=== PATIENT | male | born 1985 | race Caucasian/White ===

== ENCOUNTER 2019-04-09 07:59 | Day surgery (SDC) | payer OTHER ==
[~2019-04-09] VITALS: Ht 188 cm; Wt 100.8 kg
[2019-04-09] MEDS ORDERED: LACTATED RINGERS 1,000 ML IV SCH (08:43)
[2019-04-09] MEDS ORDERED: NONE PER PT (08:44)
[2019-04-09 08:48] VITALS: BP 123/81
[2019-04-09] MEDS ORDERED: LIDOCAINE-MPF 1%, 2ML INFIL ONE (09:00)
[2019-04-09] MEDS ORDERED: FENTANYL PF 100 MCG/2ML ONE ×2 (11:00→12:20)
[2019-04-09] MEDS ORDERED: MIDAZOLAM 1 MG/ML, 2ML ONE (11:00)
[2019-04-09] MEDS ORDERED: KETOROLAC 30 MG/1 ML ONE (11:04)
[2019-04-09] MEDS ORDERED: CEFAZOLIN 1,000 MG ONE (11:54)
[2019-04-09] MEDS ORDERED: PROPOFOL 10 MG/ML, 20ML ONE (11:54)
[2019-04-09] MEDS ORDERED: GLYCOPYRROLATE 0.2MG/1ML, 5ML ONE (11:54)
[2019-04-09] MEDS ORDERED: SUCCINYLCHOLINE 20 MG/ML, 10ML ONE (11:54)
[2019-04-09] MEDS ORDERED: NEOSTIGMINE 1 MG/ML, 10ML ONE (11:54)
[2019-04-09] MEDS ORDERED: ONDANSETRON 2MG/ML, 2ML ONE (11:54)
[2019-04-09] MEDS ORDERED: DEXAMETHASONE 4 MG/ML, 1ML ONE (11:54)
[2019-04-09] MEDS ORDERED: ROCURONIUM 10MG/ML,5ML ONE (11:54)
[2019-04-09] MEDS ORDERED: hydrALAzine 20 MG/ML, 1ML IV PRN (12:00)
[2019-04-09] MEDS ORDERED: ACETAMINOPHEN 325 MG TABLET PO PRN (12:00)
[2019-04-09] MEDS ORDERED: OXYcodone 5 MG/5 ML ORAL.SOL UDC PO PRN (12:00)
[2019-04-09] MEDS ORDERED: ALBUTEROL SULFATE 2.5 MG/3 ML NPPB PRN (12:00)
[2019-04-09] MEDS ORDERED: DIAZEPAM 5 MG/ML, 2ML IVPush PRN (12:00)
[2019-04-09] MEDS ORDERED: HYDROmorphone 2 MG/ML, 1ML IVPush PRN (12:00)
[2019-04-09] MEDS ORDERED: LABETALOL 5MG/ML, 20ML IV PRN (12:00)
[2019-04-09] MEDS ORDERED: MEPERIDINE/PF 25MG/0.5ML IVPush PRN (12:00)
[2019-04-09] MEDS ORDERED: PROMETHAZINE 25 MG/ML, 1ML IV PRN (12:00)
[2019-04-09] MEDS ORDERED: ACETAMINOPHEN 650 MG/20.3 ML UDC ONE (12:20)
[2019-04-09] MEDS ORDERED: OXYcodone 5 MG/5 ML ORAL.SOL UDC ONE (12:20)
[2019-04-09] MEDS: FENTANYL PF 100 MCG/2ML IV PRN ×4 (12:25→12:47)
== END 2019-04-09 14:30 | disposition home or self-care (01) ==
LOC: OR 07:59 → OUT 14:30
PROVIDERS: ATTEND Surgery Vascular Surgery
DX: I87.2 Venous insufficiency (chronic) (peripheral) (principal); I83.022 Varicose veins of left lower extremity with ulcer of calf; M79.609 Pain in unspecified limb; L97.229 Non-pressure chronic ulcer of left calf with unspecified severity; F12.90 Cannabis use, unspecified, uncomplicated
CPT/HCPCS: 37718; 76998; 88304; J0690; J1100; J1885; J2250; J2405; J2704; J2710; J3010; J7120; J0330